=== PATIENT | female | born 2000 | race Caucasian/White ===

== ENCOUNTER 2021-02-20 09:53 | Emergency (ER) | payer BC ==
--- NOTE | 2021-02-20 10:55 | EDM.PDOC ---
ED HPI GENERAL MEDICAL PROBLEM - General Chief Complaint: ENT Problem Stated Complaint: POSSIBLE SINUS INFECTION Time Seen by Provider: 02/20/21 10:53 Source of Information: Reports: Patient History Limitations: Reports: Intoxication - History of Present Illness INITIAL COMMENTS - FREE TEXT/NARRATIVE: pt has had headaches and alot of pressure over her sinus area. She has been blowing out purulent looking mucous. Onset: Gradual Duration: Hour(s): Location: Reports: Face, Other ( alot of sinus pressure. ) Associated Symptoms: Reports: No Other Symptoms Headache Pain Score (Numeric/FACES): 4 - Related Data Allergies Allergy/AdvReac Type Severity Reaction Status Date / Time No Known Allergies Allergy Verified 02/20/21 10:28 Home Meds: Home Meds Escitalopram Oxalate [Lexapro] 10 mg PO DAILY 02/20/21 [History] Past Medical History PLASTIC [employer] History: Reports: Fibroids Musculoskeletal History: Reports: Fracture Psychiatric History: Reports: Anxiety Dermatologic History: Reports: Eczema - Past Surgical History HEENT Surgical History: Reports: Tonsillectomy Social & Family History - Tobacco Use Tobacco Use Status *Q: Never Tobacco User - Caffeine Use Caffeine Use: Reports: Soda - Recreational Drug Use Recreational Drug Use: No ED ROS ENT - Review of Systems Review Of Systems: See Below Constitutional: Reports: No Symptoms HEENT: Reports: Sinus Problem, Other ( blowing out thick mucous) Respiratory: Reports: No Symptoms, Other (occasional cough) Cardiovascular: Reports: No Symptoms Endocrine: Reports: No Symptoms GI/Abdominal: Reports: No Symptoms : Reports: No Symptoms Musculoskeletal: Reports: No Symptoms Skin: Reports: No Symptoms Neurological: Reports: No Symptoms Psychiatric: Reports: No Symptoms ED EXAM, ENT - Physical Exam Exam: See Below Text/Narrative:: pt arrived with a history of headaches pressure over her sinuses and blowing out thick mucous. Exam Limited By: No Limitations General Appearance: Alert, Anxious, Mild Distress Ears: Normal TMs Nose: Normal Inspection Mouth/Throat: Normal Inspection Head: Facial Tenderness Neck: Normal Inspection Respiratory/Chest: No Respiratory Distress Cardiovascular: Regular Rate, Rhythm GI/Abdominal: Soft (Female) Exam: Deferred Rectal (Female) Exam: Deferred Course - Vital Signs Last Recorded V/S: Last Vital Signs Temp 36.6 C 02/20/21 10:25 Pulse 117 H 02/20/21 10:25 Resp 16 02/20/21 10:25 BP 123/77 02/20/21 10:25 Pulse Ox 97 02/20/21 10:25 Departure - Departure Time of Disposition: 10:54 Disposition: Home, Self-Care 01 Condition: Fair Clinical Impression: Sinusitis - Discharge Information Referrals: PCP,None [Primary Care Provider] - Forms: ED Department Discharge Care Plan Goals: push fluids, amoxicillin 500mg tid, cool mist humidfier Sepsis Event Note (ED) - Evaluation Sepsis Screening Result: No Definite Risk - Focused Exam Vital Signs: Vital Signs Temp Pulse Resp BP Pulse Ox 02/20/21 10:25 36.6 C 117 H 16 123/77 97 02/20/21 10:18 36.6 C 117 H 16 123/77 97
== END 2021-02-20 11:09 | disposition home or self-care (01) ==
LOC: JP.ED 09:53
DX: J32.9 Chronic sinusitis, unspecified (principal)
CPT/HCPCS: 99283